=== PATIENT | female | born 1950 | race Caucasian/White ===

== ENCOUNTER 2017-09-16 06:27 | Inpatient (IN) | payer BC, OTHER ==
[~2017-09-16] VITALS: Ht 165.1 cm; Wt 86.2 kg
--- NOTE | ~2017-09-16 | EKG ---
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[facility] : 1950 Requested By: Hadley Aguayo Order Number: [id number] MD: Barry Jett Measurements Intervals [place] Rate: 77 P: 52 [place]: 151 QRS: 27 QRSD: 81 T: 29 QT: 352 QTc: 399 Interpretive Statements Sinus rhythm Borderline low voltage, extremity leads Compared to ECG 01/25/1993 17:34:00 ST (T wave) deviation no longer present Electronically Signed On 09-19-2017 13:16:27 CDT by Barry Jett [email or web address] <ELECTRONICALLY SIGNED> By: Barry Jett MD, [facility] 09/19/17 1316 7 7 Barry Jett MD, [facility] /EPI
--- NOTE | ~2017-09-16 | 2DMMODE ---
[facility] [address] [place] [address] 2 D/M-MODE ECHOCARDIOGRAM Name: JENNY ALEJANDRO Room #: 410-P [facility] IN [facility]#: [id number] Admission: 09/16/17 Attend Phys: Jl Brush MD Discharge: Date of : 54 Date of Service: 09/16/17 1524 Report #: [id number] THIS REPORT FOR: //name// APPROVED REPORT Study performed: 09/16/2017 12:11:43 EXAM: Comprehensive 2D, Doppler, and color-flow Echocardiogram Patient Location: Echo lab Room #: [facility] Status: routine BSA: 1.94 HR: 80 bpm BP: 146/71 mmHg Rhythm: NSR Other Information Study Quality: Adequate Indications Palpitations Hx: HTN 2D Dimensions RVDd: 32.55 mm LVEF(%): 64.84 (>50%) IVSd: 9.66 (7-11mm) LVOT Diam: 19.63 (18-24mm) LVDd: 44.73 mm PWd: 10.03 (7-11mm) Ascending Ao: 33.94 (22-36mm) LVDs: 28.94 (25-40mm) Aortic Root: 28.45 mm Us's LVEF: 64.84 % Volumes Left Atrial Volume (Systole) Single Plane 4CH: 49.71 mL Single Plane 2CH: 62.95 mL LA ESV Index: 33.00 mL/m2 Aortic Valve AoV Peak Rigo.: 1.79 m/s AO Peak Gr.: 12.87 mmHg LVOT Max P.08 mmHg LVOT Max V: 1.42 m/s VINCE Vmax: 2.40 cm2 Mitral Valve E/A Ratio: 1.2 [facility] [address] [place] [address] 2 D/M-MODE ECHOCARDIOGRAM Name: JENNY ALEJANDRO Room #: [address] [place] [address] [place] [facility]#: [id number] Admission: 09/16/17 Attend Phys: Jl Brush MD Discharge: Date of : 54 Date of Service: 09/16/17 1524 Report #: [id number] MV Decel. Time: 219.20 ms MV E Max Rigo.: 0.90 m/s MV A Rigo.: 0.76 m/s MV PHT: 63.57 ms IVRT: 78.43 ms Pulmonary Valve PV Peak Rigo.: 1.25 m/s PV Peak Gr.: 6.20 mmHg Pulmonary Vein P Vein S: 0.61 m/s P Vein A: 0.27 m/s P Vein D: 0.37 m/s P Vein A Dur.: 106.1 msec P Vein S/D Ratio: 1.65 Tricuspid Valve TR Peak Rigo.: 2.32 m/s TR Peak Gr.: 21.58 mmHg Left Ventricle The left ventricle is normal size. There is normal left ventricular wall thickness. The left ventricular systolic function is normal. LVEF is 55-60%. Grade II - pseudonormal filling dynamics. Right Ventricle The right ventricle is normal size. The right ventricular systolic function is normal. Atria The left atrium size is normal. The right atrium size is normal. Aortic Valve The aortic valve is normal in structure. No aortic regurgitation is present. There is no aortic valvular stenosis. Mitral Valve The mitral valve is normal in structure. Trace to mild mitral regurgitation. No evidence of mitral valve stenosis. Tricuspid Valve The tricuspid valve is normal in structure. Trace tricuspid regurgitation. Estimated PAP 22 mmHg plus right atrial pressure. Pulmonic Valve The pulmonary valve is normal in structure. Trace pulmonic [address] [address] 2 D/M-MODE ECHOCARDIOGRAM Name: JAVONJENNY Room #: 410-P [facility] IN [facility]#: [id number] Admission: 09/16/17 Attend Phys: Jl Brush MD Discharge: Date of : 54 Date of Service: 09/16/17 1524 Report #: [id number] regurgitation. Great Vessels The aortic root is normal in size. The ascending aorta is normal in size. IVC is not well visualized. Pericardium There is no pericardial effusion. <Conclusion> The left ventricle is normal size. There is normal left ventricular wall thickness. LVEF is 55-60%. Grade II - pseudonormal filling dynamics. The right ventricle is normal size. The left atrium size is normal. The aortic valve is normal in structure. There is no aortic valvular stenosis. Trace to mild mitral regurgitation. Trace tricuspid regurgitation. Estimated PAP 22 mmHg plus right atrial pressure. The aortic root is normal in size. There is no pericardial effusion. <ELECTRONICALLY SIGNED> By: Dann Stewart MD, FACC 09/16/17 1524 1524 1524 Dann Stewart MD, FACC /INF
--- NOTE | ~2017-09-16 | HC ---
[facility] [place] [address] CONSULTATION Name: JENNY ALEJANDRO Room #: 410-P [facility]..#: [id number] Admission: 09/16/17 Attend Phys: Jl Brush MD Discharge: 09/17/17 Date of : 54 Report #: [id number] THIS REPORT FOR: //name// CC: Wally Brush DATE OF SERVICE: 09/16/2017 REASON FOR CONSULTATION: Palpitations. HISTORY OF PRESENT ILLNESS: This is a very pleasant 67-year-old female patient who has a long history of palpitations. She states she has had them for quite some time, although on the day of admission, they seemed to be longer and faster and this concerned her. She then sought medical attention and was evaluated. She denies any sensations of chest pain, pressure, tightness or heaviness. Denied any shortness of breath, syncope or near syncope. She does state that she felt her heart pounding fairly hard and when mentioned the admission history and physical of chest pressure and heaviness, she denied all together. She states that she has had these palpitations in the past, but this one was just longer and faster and that was the concern. She has not had any recent fever, chills or night sweats, but she did state that both her and her spouse have been under significant familial emotional pressure to the point that she became tearful when obtaining a history. PAST MEDICAL HISTORY: Significant for: 1. History of nephrolithiasis. 2. Hypertension. 3. Anxiety. 4. Degenerative joint disease. MEDICATIONS: Tamsulosin, [place], Motrin, Cozaar, Otezla, Lexapro and atenolol. PAST SURGICAL HISTORY: Significant for: 1. Hysterectomy. 2. Abdominal exploratory lap with excision of a benign tumor. ELECTROCARDIOGRAM: Normal sinus rhythm, nonspecific ST-T wave changes. ALLERGIES: No known drug allergies. RADIOLOGIC DATA: Chest x-ray fails to demonstrate any acute processes or abnormalities. LABORATORY DATA: Laboratory demonstrates potassium of 4.1. BUN and creatinine are 11 and 0.9. Troponin is less than 0.04. H and H are 14.4 and 41.9 with a platelet count of 269,000. [facility] [address] [place] [address] CONSULTATION Name: JENNY ALEJANDRO Aura Room #: 410-P [facility] IN [facility]#: [id number] Admission: 09/16/17 Attend Phys: Jl Brush MD Discharge: 09/17/17 Date of : 54 Report #: [id number] REVIEW OF SYSTEMS: Except for the symptoms previously mentioned and those commensurate with comorbid state, the 10-point review of system is negative. SOCIAL HISTORY: The patient is a former smoker, quit over a year ago. She does consume alcohol, but does not follow a particular exercise regimen or dietary restriction. She does drink daily. PHYSICAL EXAMINATION: GENERAL: Well-developed, well-nourished female resting comfortably, in no acute distress. VITAL SIGNS: Noted and reviewed in the chart. HEENT: Normocephalic, atraumatic. Pupils are equal, round, reactive to light and accommodation. Extraocular muscles are intact. Sclerae and conjunctivae are anicteric. NECK: JVD is normal. Carotid upstrokes are bilaterally symmetrical. No bruits are heard. No thyromegaly. No lymphadenopathy. LUNGS: Clear to auscultation. No wheezes, rhonchi or crackles. No CVA tenderness. CARDIAC: Demonstrates a regular rhythm. Normal first and second heart sounds. No ventricular or atrial gallops, no rubs noted. No murmurs. No lifts or heaves, PMI normal. ABDOMEN: Soft, nontender, nondistended. Normal bowel sounds. EXTREMITIES: Without cyanosis, clubbing or edema. Distal pulses are intact. DTR symmetrical. NEUROLOGIC: Cranial nerves 2-12 are grossly normal and symmetrical. PSYCHIATRIC: Alert, oriented with normal affect. SKIN: Warm and dry. IMPRESSION AND PLAN: 1. Palpitations, multiple etiologies. Echocardiogram will be reviewed to make sure there are no structural abnormalities. We can exclude ischemic origin either as an inpatient or an outpatient with a perfusion scan. We will get that scheduled to see if we can get it done tomorrow. Otherwise, she will likely need to be discharged with an event monitor and follow up as an outpatient. 2. Anxiety. This may be a factor in the above and we will need to make sure that we optimize treatment of this if all other workup is negative. 3. Hypertension, elevated. She had not been on any medications. We will get her back on her medications and see how that controls her symptomatology. 4. Alcohol dependence. The patient does consume hard liquor daily. I suggest that we proceed with standard protocol or the alternative if there is a prescribed alcoholic beverage daily (as practiced in [place]). <ELECTRONICALLY SIGNED> By: Kiko Shaw MD 09/26/17 1126 53 19 Kiko Shaw MD /nt
[~2017-09-16 06:27] MED LIST: ATENOLOL; CIPROFLOXACIN500 M1 PO; HYDROCODONE-AP1 EAC6 PO; IBUPROFEN 600600 M1 PO; LEXAPRO; NORCO 5-325 TA1 EACH PO; PHENERGAN25 MG RE; TAMSULOSIN HCL0.4 M1 PER TUBE
[2017-09-16 06:43] VITALS: BP 178/78
[2017-09-16] MEDS ORDERED: COZAAR 50 MG TA50 M2 PO (06:57)
[2017-09-16] MEDS ORDERED: OTEZLA1 EAC1 PO (06:58)
[2017-09-16 07:35] LABS: ABSOLUTE NEUTROPHILS 4.7 thou/uL (1.4-8.2); BASOPHILS 0.8 % (0.0-2.0); EOSINOPHILS 3.1 % (0.0-3.0); HEMATOCRIT 41.9 % (37.0-47.0); HEMOGLOBIN 14.4 gm/dL (12.0-15.0); LYMPHOCYTES 20.3 % (24.0-44.0); MCH 33.5 pg (26.0-34.0); MCHC 34.3 g/dL (28.0-37.0); MCV 97.6 fL (80.0-100.0); MONOCYTES 6.6 % (1.0-8.0); PLATELET COUNT 269 thou/uL (150-400); POLYS 69.2 % (36.0-66.0); RBC 4.29 mil/uL (4.20-5.00); RDW 13.6 % (10.5-14.5); WBC 6.8 thou/uL (4.0-11.0)
[2017-09-16 07:42] LABS: ANION GAP 8 mmol/L (7-16); BUN 11 mg/dL (7-18); CALCIUM 9.3 mg/dL (8.5-10.1); CHLORIDE 106 mmol/L (98-107); CO2 28 mmol/L (21-32); CREATININE 0.9 mg/dL (0.6-1.0); GLUCOSE 128 mg/dL (74-106); POTASSIUM 4.1 mmol/L (3.5-5.1); SODIUM 142 mmol/L (136-145)
[2017-09-16 07:46] LABS: APTT 25.9 Seconds (24.5-32.8); PROTIME 10.5 Seconds (9.3-11.4)
[2017-09-16 07:52] LABS: ALBUMIN 3.4 g/dL (3.4-5.0); SGOT 31 U/L (15-37); SGPT 45 U/L (30-65); TOTAL BILIRUBIN 0.6 mg/dL (<0.1-1.0); TOTAL PROTEIN 7.1 g/dL (6.4-8.2); TROPONIN-I < 0.04 ng/mL (<0.06)
[2017-09-16 09:01] LABS: CHOLESTEROL 193 mg/dL (<200); HDL CHOLESTEROL 84 mg/dL (>40); LDL CHOLESTEROL 94 mg/dL (<100); TC:HDL 2.3 Ratio (Not establshd); TRIGLYCERIDE 79 mg/dL (<150); VLDL 16 mg/dL (<40)
[2017-09-16 10:10] VITALS: BP 146/86
[2017-09-16 10:16] VITALS: BP 158/72
[2017-09-16 10:51] VITALS: BP 146/71
[2017-09-16 16:02] VITALS: BP 156/89
[2017-09-16 20:00] VITALS: BP 147/69
[2017-09-17 04:00] VITALS: BP 158/83
[2017-09-17 05:35] LABS: CALCIUM 8.4 mg/dL (8.5-10.1); CREATININE 0.8 mg/dL (0.6-1.0); MAGNESIUM 1.8 mg/dL (1.8-2.4); POTASSIUM 3.9 mmol/L (3.5-5.1)
[2017-09-17 07:10] VITALS: BP 153/76
[2017-09-17 12:03] VITALS: BP 166/88
[2017-09-17 15:36] VITALS: BP 153/87
[2017-09-17 16:13] VITALS: BP 153/87
== END 2017-09-17 18:42 | disposition home or self-care (01) | DRG 310 ==
LOC: ER 06:27 → EROBS 08:06 → 4N 08:06
PROVIDERS: Emergency Medicine; Nurse Practitioner
DX: R00.2 Palpitations (principal); F10.20 Alcohol dependence, uncomplicated; M19.90 Unspecified osteoarthritis, unspecified site; F41.9 Anxiety disorder, unspecified; I10 Essential (primary) hypertension; Z90.710 Acquired absence of both cervix and uterus; Z87.442 Personal history of urinary calculi; Z87.891 Personal history of nicotine dependence; Z79.899 Other long term (current) drug therapy; Z28.21 Immunization not carried out because of patient refusal
CPT/HCPCS: 10790